=== PATIENT | male | born 1990 | race Caucasian/White ===

== ENCOUNTER 2017-06-06 08:20 | Emergency (ER) | payer MEDICAID, OTHER ==
[~2017-06-06] VITALS: Ht 167.6 cm; Wt 123.5 kg
[2017-06-06 08:26] VITALS: BP 129/88
--- NOTE | 2017-06-06 08:30 | NUR ---
26/M PRESENT TO ER C/O LEFT EAR ACHE x 4 DAYS. PT STATES THERE IS CLEAR DAINAGE WITH ODOR ON LEFT EAR. AAOx4, BREATHING EVEN AND EFFORTLESS. ERMD NOTIFIED OF PATIENT STATUS.
--- NOTE | 2017-06-06 08:35 | NUR ---
Patient being evaluated by physician at bedside.
[2017-06-06 08:59] VITALS: BP 129/88
--- NOTE | 2017-06-06 08:59 | NUR ---
Patient discharged with v/s stable. Written and verbal after care instructions given and explained. Patient alert, oriented and verbalized understanding of instructions. Ambulatory with steady gait. All questions addressed prior to discharge. ID band removed. Patient advised to follow up with PMD. Rx of NAPROSYN 500MG AND OFLOXACIN 0.3% OTIC SOLUTION given. Patient educated on indication of medication including possible reaction and side effects. Opportunity to ask questions provided and answered.
== END 2017-06-06 08:59 | disposition home or self-care (01) ==
LOC: MED 08:20
DX: H60.8X2 Other otitis externa, left ear (principal); Z88.0 Allergy status to penicillin
CPT/HCPCS: 99283

== ENCOUNTER 2019-03-13 19:06 | Inpatient (IN) | payer OTHER ==
[~2019-03-13] VITALS: Ht 165.1 cm; Wt 132.9 kg
[2019-03-13 19:15] VITALS: BP 119/82
--- NOTE | 2019-03-13 19:17 | NUR ---
TO LOBBY A/W BED AMBULATORY
--- NOTE | 2019-03-13 19:20 | NUR ---
PT TAKEN TO BED 4
--- NOTE | 2019-03-13 19:24 | NUR ---
Dr. Arriaza examining patient.
--- NOTE | 2019-03-13 19:31 | NUR ---
PT TO ED WITH C/O HIGH BLOOD SUGAR AT HOME. PT REPORTS POLYDIPSIA AND POLURIA X 1 WEEK. PER MOTHER "HE'S BEEN SAYING HE HAS TO GO PEE ALOT AND DRINKING A LOT SO I TESTED HIS SUGAR AND IT WAS HIGH SO I GAVE HIM 2 METFORMINS AT HOME." PT DENIES ANY PAIN OR ANY OTHER SYMPTOMS. PT PLACED INTO BED, PENDING MD SÁNCHEZ.
[2019-03-13 19:45] LABS: BASOPHILS % (AUTO) 0.4 % (0.0-2.0); EOSINOPHILS % (AUTO) 0.5 % (0.0-4.0); HEMATOCRIT 44.3 % (36-52); LYMPHOCYTES # (AUTO) 2.5 K/uL (2.0-11.5); LYMPHOCYTES % (AUTO) 28.5 % (20.5-51.1); MEAN CORPUSCULAR HEMOGLOBIN 29 pg (27-31); MEAN CORPUSCULAR HGB CONC 34 g/dL (33-37); MEAN CORPUSCULAR VOLUME 86.1 fL (80-94); MONOCYTES # (AUTO) 0.7 K/uL (0.8-1.0); MONOCYTES % (AUTO) 7.7 % (1.7-9.3); NEUTROPHILS # (AUTO) 5.4 K/uL (1.8-7.7); NEUTROPHILS % (AUTO) 62.9 % (42.2-75.2); PLATELET COUNT (AUTO) 277 K/uL (140-450); RED BLOOD CELL COUNT(AUTO) 5.15 MIL/uL (4.20-6.10); RED CELL DISTRIBUTION WIDTH 12.9 % (11.6-13.7); WHITE BLOOD COUNT (AUTO) 8.6 K/uL (4.8-10.8)
--- NOTE | 2019-03-13 20:00 | NUR ---
EKG PERFORMED AT BEDSIDE
[2019-03-13] MEDS ORDERED: NACL 0.9% 1,000 ML IV ONE (20:05)
[2019-03-13] MEDS ORDERED: INSULIN REGULAR, HUMAN 100 UNIT/ML VIAL SUBQ ONE (20:05)
[2019-03-13 20:10] LABS: ALBUMIN 3.3 g/dL (3.4-5.0); ANION GAP 13.1 (8-16); ASPARTATE AMINOTRANSFERASE 35 U/L (15-37); CARBON DIOXIDE 27.5 mmol/L (21-32); CHLORIDE 99 mmol/L (98-107); FREE T4 (FREE THYROXINE) 1.49 ng/dL (0.76-1.46); GFR ARICAN-AMERICAN 114 mL/min (>90); POTASSIUM 3.6 mmol/L (3.5-5.1); SODIUM SERUM 136 mmol/L (136-145); THYROID STIMULATING HORMONE 1.01 uIU/mL (0.34-3.74); TOTAL BILIRUBIN 0.4 mg/dL (0.0-1.0); UREA NITROGEN, BLOOD 9 mg/dL (7-18)
[2019-03-13 20:11] LABS: GLUCOSE 440 mg/dL (74-106)
[2019-03-13 20:28] LABS: APPEARANCE,URINE HAZY (CLEAR); BILIRUBIN,URINE NEGATIVE (NEGATIVE); BLOOD, URINE 2+ (NEGATIVE); COLOR,URINE YELLOW (YELLOW); LEUKOCYTE ESTERASE ,URINE NEGATIVE (NEGATIVE); NITRITE, URINE NEGATIVE (NEGATIVE); PH,URINE 6.5 (5.0-9.0); UGLUCOSE 3+ (NEGATIVE)
[2019-03-13 20:33] LABS: RBC,URINE NONE SEEN /HPF (0-5); WBC,URINE 0-5 /HPF (0-5)
--- NOTE | 2019-03-13 20:36 | NUR ---
INFORMED PT OF PLAN OF CARE. NO NEW QUESTIONS OR CONCERNS AT THIS TIME.
--- NOTE | 2019-03-13 20:40 | NUR ---
PT REFUSED GOWN, STATING HE IS ANXIOUS. ER MD AWARE. ORDERS TO FOLLOW.
[2019-03-13 20:52] LABS: ACETONE, SERUM NEGATIVE (NEGATIVE)
[2019-03-13] MEDS ORDERED: LORazepam 2 MG/ML VIAL IVP ONE (20:55)
--- NOTE | 2019-03-13 21:22 | NUR ---
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
[2019-03-13 21:30] VITALS: BP 119/88
--- NOTE | 2019-03-13 21:30 | NUR ---
Patient will be admitted to care of DR ZAZUETA. Admited to MED/SURG. Will go to room 112-B. Belongings list completed. Report to CAROLYN FAITH.
--- NOTE | 2019-03-13 21:30 | NUR ---
PT ARRIVED TO UNIT VIA GURNEY AND WAS ABLE TO AMBULATE WITHOUT ASSISTANCE TO UNIT BED. MOTHER AT BEDSIDE. RECEIVED REPORT FROM ER NURSE YUAN-RN AT BEDSIDE. PT RESTING IN BED, AOX4 WITH HX OF ANTI-SOCIAL, MILD MENTAL RETARDATION AND ANXIETY- AND ACCORDING TO MOTHER IT IS BEST TO COMMUNICATE USING HAND GESTURES TO HELP PT BETTER UNDERSTAND. DISCUSSED PLAN OF CARE AND PT VERBALIZED UNDERSTANDING. NO S/S OF RESPIRATORY DISTRESS OR DISCOMFORT NOTED AT THIS TIME. ORIENTED PT TO BED, CALL LIGHT AND BATHROOM LOCATION. VITAL SIGNS TAKEN AND TOLERATED WELL. BLOOD GLUCOSE 325- NO INSULIN COVERAGE GIVEN. MRSA NARES SWAB COLLECTED AND TOLERATED WELL. BED IN LOWEST POSITION, BED BREAKS ON, BOTH SIDE RAILS UP. BEDSIDE TABLE AND CALL LIGHT ARE WITHIN REACH. WILL CONTINUE TO MONITOR.
[2019-03-13] MEDS ORDERED: ACETAMINOPHEN 325 MG TAB PO PRN (22:25)
[2019-03-13] MEDS ORDERED: LORazepam 1 MG TAB PO PRN (22:25)
[2019-03-13] MEDS ORDERED: DEXTROSE 50% 50 ML SYR IVP PRN (22:25)
[2019-03-13] MEDS ORDERED: ZOLPIDEM 10 MG TAB PO PRN (22:25)
[2019-03-13] MEDS ORDERED: metFORMIN 850 MG TAB PO SCH (23:00)
[2019-03-13] MEDS ORDERED: glyBURIDE 5 MG TAB PO SCH (23:00)
[2019-03-13] MEDS: NACL 0.9% 1,000 ML IV SCH (23:10)
--- NOTE | 2019-03-13 23:10 | NUR ---
SCHEDULED MEDICATIONS GIVEN AND TOLERATED WELL. NO S/S OF RESPIRATORY DISTRESS OR DISCOMFORT NOTED AT THIS TIME. WILL CONTINUE TO MONITOR.
[2019-03-14] VITALS: BP 118/74
--- NOTE | 2019-03-14 | NUR ---
VITAL SIGNS TAKEN AND TOLERATED WELL. BLOOD GLUCOSE 272- NO INSULIN COVERAGE GIVEN. BLOOD GLUCOSE CHECKED DUE TO PT BECOMING DIAPHORETIC. NO S/S OF RESPIRATORY DISTRESS OR DISCOMFORT NOTED AT THIS TIME. WILL CONTINUE TO MONITOR.
--- NOTE | 2019-03-14 02:00 | NUR ---
PT CONTINUES TO SLEEP IN BED. NO S/S OF RESPIRATORY DISTRESS OR DISCOMFORT NOTED AT THIS TIME. WILL CONTINUE TO MONITOR.
--- NOTE | 2019-03-14 04:00 | NUR ---
PT CONTINUES TO SLEEP IN BED. NO S/S OF RESPIRATORY DISTRESS OR DISCOMFORT NOTED AT THIS TIME. WILL CONTINUE TO MONITOR.
[2019-03-14] MEDS: BLOOD GLUCOSE MONITORING 1 DEV DEV FS SCH ×2 (06:16→11:51)
[2019-03-14] MEDS: INSULIN LISPRO SLIDING SCALE 100 UNITS/ML VIAL SUBQ PRN ×2 (06:19→12:11)
--- NOTE | 2019-03-14 06:19 | NUR ---
BLOOD GLUCOSE 231- INSULIN COVERAGE GIVEN AND TOLERATED WELL. NO S/S OF RESPIRATORY DISTRESS OR DISCOMFORT NOTED AT THIS TIME. WILL CONTINUE TO MONITOR.
[2019-03-14 06:51] LABS: BASOPHILS % (AUTO) 0.5 % (0.0-2.0); EOSINOPHILS # (AUTO) 0.1 K/uL (0-0.4); EOSINOPHILS % (AUTO) 1.6 % (0.0-4.0); HEMATOCRIT 38.8 % (36-52); HEMOGLOBIN 13.1 g/dL (12.0-18.0); LYMPHOCYTES # (AUTO) 2.6 K/uL (2.0-11.5); LYMPHOCYTES % (AUTO) 38.6 % (20.5-51.1); MEAN CORPUSCULAR HEMOGLOBIN 29 pg (27-31); MEAN CORPUSCULAR HGB CONC 34 g/dL (33-37); MEAN CORPUSCULAR VOLUME 85.5 fL (80-94); MONOCYTES # (AUTO) 0.6 K/uL (0.8-1.0); MONOCYTES % (AUTO) 9.7 % (1.7-9.3); NEUTROPHILS # (AUTO) 3.3 K/uL (1.8-7.7); NEUTROPHILS % (AUTO) 49.6 % (42.2-75.2); PLATELET COUNT (AUTO) 223 K/uL (140-450); RED BLOOD CELL COUNT(AUTO) 4.54 MIL/uL (4.20-6.10); RED CELL DISTRIBUTION WIDTH 13.1 % (11.6-13.7); WHITE BLOOD COUNT (AUTO) 6.7 K/uL (4.8-10.8)
[2019-03-14 07:11] LABS: CHOL/HDL RATIO 4.9 (1-4.5)
[2019-03-14 07:13] LABS: ANION GAP 9.5 (8-16); CARBON DIOXIDE 29.1 mmol/L (21-32); CREATININE 0.7 mg/dL (0.7-1.3); POTASSIUM 3.6 mmol/L (3.5-5.1)
--- NOTE | 2019-03-14 07:24 | NUR ---
ENDORSED PT CARE TO DAY SHIFT NURSE MEREDITH FOR CONTINUITY OF CARE.
--- NOTE | 2019-03-14 07:25 | NUR ---
RECEIVED BEDSIDE REPORT FROM BOILER SERVICE TECHNICIAN RN. PATIENT RESTING IN BED IN STABLE CONDITION. NO SIGNS OF DISTRESS ON RA. NO C/O PAIN. SAFETY PRECAUTIONS IN PLACE.
[2019-03-14 08:00] VITALS: BP 128/68
[2019-03-14] MEDS ORDERED: glyBURIDE 5 MG TAB PO SCH (08:00)
[2019-03-14] MEDS ORDERED: metFORMIN 850 MG TAB PO SCH (08:00)
[2019-03-14] MEDS: NACL 0.9% 1,000 ML IV SCH (08:25)
--- NOTE | 2019-03-14 09:18 | NUR ---
PATIENT HAS BEEN SCREENED AND CATEGORIZED HIGH NUTRITION RISK. PATIENT WILL BE SEEN WITHIN 1-2 DAYS OF ADMISSION. 03/14/19-03/15/[address]
--- NOTE | 2019-03-14 09:49 | NUR ---
ADMINISTERED SCHEDULED MEDICATIONS. PATIENT TOLERATED WELL. NO SIGNS OF DISTRESS ON RA. SAFETY PRECAUTIONS IN PLACE.
--- NOTE | 2019-03-14 11:30 | NUR ---
DR. VIZCAINO AT BEDSIDE. WILL DISCHARGE PATIENT TODAY WITH [facility].
--- NOTE | 2019-03-14 11:49 | NUR ---
CONTACTED [facility] AT [phone], SPOKE TO RENEE SHE PROVIDED ME FOLLOW UP APPOINTMENT ON MARCH 302018 AT 1330. COPY OF APPOINTMENT PROVIDED TO THE PATIENT.
--- NOTE | 2019-03-14 12:11 | NUR ---
PATIENT GLUCOSE 313, ADMINISTERED 8 UNITS OF HUMALOG. EDUCATED PATIENT AND FAMILY ON ON INSULIN ADMINISTRATION. BOTH VERBALIZED UNDERSTANDING.
[2019-03-14 13:05] VITALS: BP 128/68
[2019-03-14] MEDS ORDERED: MIC5 PO (13:11)
[2019-03-14] MEDS ORDERED: METF500T PO (13:12)
--- NOTE | 2019-03-14 13:30 | NUR ---
PATIENT DRESSED IN STREET CLOTHES, REMOVED IV, PROVIDED NEW ONSET DIABETES EDUCATION. PATIENT AND FAMILY VERBALIZED UNDERSTANDING. NO SIGNS OF DISTRESS ON RA. PATIENT DISCHARGING TO HIS HOME. MOTHER TRANSPORTING PATIENT. PATIENT AMBULATED FROM HOSPITAL WITH STEADY GAIT.
--- NOTE | 2019-03-14 14:27 | NUR ---
03/14/19 RD INITIAL ASSESSMENT COMPLETED PLEASE REFER TO NUTRITION ASSESSMENT UNDER CARE ACTIVITY FOR ESTIMATED NUTRITIONAL NEEDS. 1. CONTINUE CCHO 60 GM DIET TOLERATED 2. ENCOURAGED AVOIDING SKIPING MEALS 3. ENCOURAGED CONSUMING 3 MEALS A DAY AND 2 SNACKS 4. ENCOURAGED DECREASING INTAKE OF SUGAR SWETTENED BEVERAGES, DRINK MORE WATER 5. ENCOURAGED PT TO CONTINUE WALKING 6. ENCOURAGED PT TO ENROLLED IN DIABETES EDUCATION CLASSES 7. RD TO FOLLOW-UP 5-7 DAYS, LOW RISK ANEL [address] RD
== END 2019-03-14 13:30 | disposition home or self-care (01) | DRG 420 ==
LOC: MED 19:06 → MTU 21:10
PROVIDERS: ADMIT Internal Medicine Pulmonary Disease; ATTEND Internal Medicine Pulmonary Disease
DX: E11.65 Type 2 diabetes mellitus with hyperglycemia (principal); E66.01 Morbid (severe) obesity due to excess calories; F17.210 Nicotine dependence, cigarettes, uncomplicated; E03.9 Hypothyroidism, unspecified; F41.9 Anxiety disorder, unspecified; F15.90 Other stimulant use, unspecified, uncomplicated; Z68.42 Body mass index [BMI] 45.0-49.9, adult; Z88.0 Allergy status to penicillin; Z79.84 Long term (current) use of oral hypoglycemic drugs
CPT/HCPCS: 36415; 80048; 80053; 81001; 82009; 82948; 83036; 84439; 84443; 85025; 87081; 93005; 96360; 99285; J1815; J2060; J7030

== ENCOUNTER 2023-12-03 13:20 | Emergency (ER) | payer OTHER ==
[~2023-12-03] VITALS: Ht 170.2 cm; Wt 86.2 kg
[~2023-12-03 13:20] MED LIST: GLYB-200 PO; METF-346 PO
[2023-12-03 13:44] VITALS: BP 142/70; PULSE 118; RESP 18; TEMP 98.3; O2SAT 97
[2023-12-03] MEDS ORDERED: CEPH-588 PO (14:36)
[2023-12-03] MEDS ORDERED: SULF-59 PO (14:36)
[2023-12-03] MEDS ORDERED: IBUP-2213 PO (14:36)
== END 2023-12-03 15:01 | disposition home or self-care (01) ==
LOC: MED 13:20
DX: S90.512A Abrasion, left ankle, initial encounter (principal); L03.116 Cellulitis of left lower limb; I10 Essential (primary) hypertension; F12.90 Cannabis use, unspecified, uncomplicated; F15.90 Other stimulant use, unspecified, uncomplicated; Z88.0 Allergy status to penicillin; Z79.899 Other long term (current) drug therapy; X58.XXXA Exposure to other specified factors, initial encounter; Y93.89 Activity, other specified; Y92.89 Other specified places as the place of occurrence of the external cause; Y99.8 Other external cause status
CPT/HCPCS: 99283